=== PATIENT | female | born 1995 | race Caucasian/White ===

== ENCOUNTER 2017-06-02 13:50 | Emergency (ER) | payer OTHER ==
[2017-06-02 13:55] VITALS: BMI 22.8
[2017-06-02 13:56] VITALS: BP 112/69; PULSE 107; RESP 18; TEMP 98; O2SAT 100
--- NOTE | 2017-06-02 14:47 | RAD ---
PROCEDURE: Radiographs of the Left Shoulder HISTORY: Left shoulder pain x 1 days. h/o dislocation. COMPARISON: No prior. FINDINGS: BONES: No acute fracture. JOINTS: Unremarkable. SOFT TISSUES: Normal. OTHER FINDINGS: None. IMPRESSION: Demonstrated fracture dislocation.
--- NOTE | 2017-06-02 15:21 | C.PDOC ---
History Of Present Illness Pt c/o left shoulder pain. Denies recent injury. Time Seen by Provider: 06/02/17 14:11 Chief Complaint (Nursing): Upper Extremity Problem/Injury History Per: Patient Onset/Duration Of Symptoms: Days (1) Current Symptoms Are (Timing): Still Present Quality: "Pain" Severity: Moderate Exacerbating Factor(s): Strenuous Use Of Affected Area Additional History Per: Prior Records Past Medical History Reviewed: Historical Data, Nursing Documentation, Vital Signs Vital Signs: Last Vital Signs Temp 98 F 06/02/17 13:55 Pulse 107 H 06/02/17 13:55 Resp 18 06/02/17 13:55 BP 112/69 06/02/17 13:55 Pulse Ox 100 06/02/17 13:55 - Medical History PMH: Asthma - [facility] Procedures CL REDUC DISLOC-SHOULDER (02/01/13) Family History: States: Unknown Family Hx - Social History Hx Tobacco Use: No Hx Alcohol Use: No Hx Substance Use: No - Immunization History Hx Tetanus Toxoid Vaccination: Yes Hx Influenza Vaccination: No Hx Pneumococcal Vaccination: No Review Of Systems Except As Marked, All Systems Reviewed And Found Negative. Constitutional: Negative for: Fever, Weakness Cardiovascular: Negative for: Chest Pain Respiratory: Negative for: Shortness of Breath Gastrointestinal: Negative for: Vomiting, Abdominal Pain Musculoskeletal: Positive for: Shoulder Pain (left). Negative for: Neck Pain Skin: Negative for: Rash Neurological: Negative for: Weakness, Numbness Physical Exam - Physical Exam Appears: Non-toxic, No Acute Distress Skin: Normal Color, Warm, Dry, No Rash Head: Atraumatic, Normacephalic Eye(s): bilateral: Normal Inspection, PERRL, EOMI Neck: Normal ROM, Supple Cardiovascular: Rhythm Regular Respiratory: Normal Breath Sounds, No Accessory Muscle Use Gastrointestinal/Abdominal: Soft, No Tenderness Extremity: Normal ROM (but painful in left shoulder), No Deformity, No Swelling Extremity: Bilateral: Normal Color And Temperature Pulses: Left Radial: Normal Neurological/Psych: Oriented x3, Normal Motor, Normal Sensation ED Course And Treatment O2 Sat by Pulse Oximetry: 100 Pulse Ox Interpretation: Normal - Other Rad Left shoulder x-rays X-Ray: Viewed By Me, Read By Radiologist Interpretation: No acute fx or dislocation. Progress Note: Pt was placed in left arm sling. Reassessment Condition: Improved Disposition Counseled Patient/Family Regarding: Studies Performed, Diagnosis, Need For Followup - Disposition Referrals: Ty Babcock III, MD [Staff Provider] - Disposition: HOME/ ROUTINE Disposition Time: 15:21 Condition: STABLE Additional Instructions: Follow up with an public health specialist for further evaluation and treatment. Return to the ER if you develop redness, swelling, worsening of symptoms or if you have any other concerns. Instructions: Shoulder Pain (DC) Forms: [facility] (Hungarian) - Clinical Impression Clinical Impression: Left shoulder pain
== END 2017-06-02 15:30 | disposition home or self-care (01) ==
LOC: C.ER 13:50
DX: M25.512 Pain in left shoulder (principal)

== ENCOUNTER 2018-01-24 11:45 | Emergency (ER) | payer OTHER ==
[2018-01-24 11:51] VITALS: BMI 21.2
[2018-01-24 12:00] VITALS: BP 104/69; PULSE 68; RESP 17; TEMP 97.8; O2SAT 100
--- NOTE | 2018-01-24 12:15 | RAD ---
Date of service: 01/24/2018 HISTORY: Cough COMPARISON: Not available TECHNIQUE: Chest PA and lateral FINDINGS: LUNGS: No active pulmonary disease. PLEURA: No significant pleural effusion identified. No pneumothorax apparent. CARDIOVASCULAR: No aortic atherosclerotic calcification present. Normal cardiac size. No pulmonary vascular congestion. OSSEOUS STRUCTURES: No significant abnormalities. VISUALIZED UPPER ABDOMEN: Normal. OTHER FINDINGS: None. IMPRESSION: No active disease.
--- NOTE | 2018-01-24 12:35 | C.PDOC ---
History Of Present Illness 22 y/o female with PMHx of asthma, comes in for evaluation of cold symptoms for the past 4 days. Associated with nasal congestion and a cough productive of clear sputum. Otherwise patient denies any fever, chills, headache, drooling, neck pain, SOB, wheezing, chest pain, abd. pain, V/D, UTi sx or any other active complaints. Ambulate to Ed for evaluation, not in any apparent distress. Time Seen by Provider: 01/24/18 11:56 Chief Complaint (Nursing): Cough, Cold, Congestion History Per: Patient History/Exam Limitations: no limitations Onset/Duration Of Symptoms: Days Current Symptoms Are (Timing): Still Present Associated Symptoms: Cough, Sputum, Nasal Congestion Past Medical History Reviewed: Historical Data, Nursing Documentation, Vital Signs Vital Signs: Last Vital Signs Temp 97.8 F 01/24/18 11:52 Pulse 68 01/24/18 11:52 Resp 17 01/24/18 11:52 BP 104/69 01/24/18 11:56 Pulse Ox 100 01/24/18 11:52 - Medical History PMH: Asthma - [facility] Procedures CL REDUC DISLOC-SHOULDER (02/01/13) Family History: States: Unknown Family Hx - Social History Hx Tobacco Use: No Hx Alcohol Use: No Hx Substance Use: No - Immunization History Hx Tetanus Toxoid Vaccination: Yes Hx Influenza Vaccination: No Hx Pneumococcal Vaccination: No Review Of Systems Except As Marked, All Systems Reviewed And Found Negative. Constitutional: Negative for: Fever, Chills ENT: Positive for: Nose Congestion Cardiovascular: Negative for: Chest Pain, Light Headedness Respiratory: Positive for: Cough, Sputum. Negative for: Shortness of Breath, Wheezing Gastrointestinal: Negative for: Vomiting, Abdominal Pain, Diarrhea Neurological: Negative for: Headache, Dizziness Physical Exam - Physical Exam Appears: Well, Non-toxic, No Acute Distress Skin: Normal Color, Warm, No Rash Head: Normacephalic Eye(s): bilateral: PERRL Ear(s): Bilateral: Normal Nose: Discharge (Nasal congestion, scant rhinorrhea) Oral Mucosa: Moist Throat: Erythema (Mild pharyngeal erythema bilaterally), No Exudate, No Drooling Neck: Trachea Midline, Supple Chest: Symmetrical, No Deformity, No Tenderness Cardiovascular: Rhythm Regular, No Murmur, No JVD Respiratory: No Accessory Muscle Use, No Rales, No Rhonchi, No Stridor, No Wheezing Gastrointestinal/Abdominal: Soft, No Tenderness, No Distention, No Guarding Back: No CVA Tenderness Extremity: Normal ROM, No Tenderness, No Swelling Neurological/Psych: Oriented x3, Normal Speech ED Course And Treatment O2 Sat by Pulse Oximetry: 100 (RA) Pulse Ox Interpretation: Normal - Radiology CXR: Interpreted by Me, Viewed By Me, Read By Radiologist CXR Interpretation: Yes: No Acute Disease Progress Note: Patient treated with Zithromax and Tessalon perles. On re-eval, pt is afebrile, hemodynamicaly stable, non-toxic. Tolerate PO well in ED. PulsEOx 100% RA. ENT: no acute findings. Neck: Supple, (-) meningeal sign. Lungs: CTA B/L, BS equal B/L. CVS: (+)S1S2, reg, (-) murmur. Abd: benign, (-) guarding, (-) rebound. Neurologically intact. CXR review and appears without acute abnormalities. Pt advised on course of ds. Ref. to f/u with PMD in 1-2 days for re-eval. Return to ED if any worsening or new changes. Disposition Counseled Patient/Family Regarding: Studies Performed, Diagnosis, Need For Followup, Rx Given - Disposition Referrals: [facility] at [facility] [Outside] Disposition: HOME/ ROUTINE Disposition Time: 12:33 Condition: STABLE Additional Instructions: Encourage fluids take medication as prescribed Follow up with PMD in 2-3 days for re-evaluation. return to Ed if any worsening or new changes. Prescriptions: Azithromycin [Zithromax] 250 mg PO DAILY #4 tab Benzonatate [Tessalon Perle] 100 mg PO TID #14 capsule Instructions: Acute Bronchitis Forms: [facility] (Croatian) - POA Present On Arrival: None - Clinical Impression Clinical Impression: Bronchitis - PA / AUTOMOBILE TESTER / Resident Statement MD/DO has reviewed & agrees with the documentation as recorded. - Scribe Statement The provider has reviewed the documentation as recorded by the Scribe (Madalyn otto) All medical record entries made by the Scribe were at my direction and personally dictated by me. I have reviewed the chart and agree that the record accurately reflects my personal performance of the history, physical exam, medical decision making, and the department course for this patient. I have also personally directed, reviewed, and agree with the discharge instructions and disposition.
== END 2018-01-24 12:45 | disposition home or self-care (01) ==
LOC: C.ER 11:45
DX: J40 Bronchitis, not specified as acute or chronic (principal)

== ENCOUNTER 2018-04-01 01:15 | Emergency (ER) | payer SELFPAY ==
[2018-04-01 01:16] VITALS: BMI 21.2
[2018-04-01 01:47] VITALS: RESP 18
--- NOTE | 2018-04-01 02:16 | C.PDOC ---
History Of Present Illness 23 y/o female with hx asthma, no intubations,. not steroid dependent,. comes to ed for chest tightness and wheezing. pt denies any external exacerbatngi factor, no exposure to smoke. pt used albuterol pump 2 times, with no improvement. pt was given a duo neb treatment by nurse on arrival to ed prior to my exam of patient. no recent uri, cough or cold symptoms. no recent travel. not on ocp. Time Seen by Provider: 04/01/18 01:40 Chief Complaint (Nursing): Shortness Of Breath History Per: Patient History/Exam Limitations: no limitations Onset/Duration Of Symptoms: Hrs (1) Current Symptoms Are (Timing): Better Initiating Event: denies: Upper Respiratory Illness, Out Of Medications, Exercising/Sports, Exposure To Smoke Quality: Tightness Current Respiratory Medications: Albuterol Associated Symptoms: denies: Fever, Chills Past Medical History Reviewed: Historical Data, Nursing Documentation, Vital Signs Vital Signs: Last Vital Signs Temp 98.6 F 04/01/18 01:28 Pulse 87 04/01/18 01:46 Resp 18 04/01/18 01:46 BP 119/85 04/01/18 01:46 Pulse Ox 98 04/01/18 01:46 - Medical History PMH: Asthma - [facility] Procedures CL REDUC DISLOC-SHOULDER (02/01/13) Family History: States: Unknown Family Hx - Social History Hx Tobacco Use: No Hx Alcohol Use: No Hx Substance Use: No - Immunization History Hx Tetanus Toxoid Vaccination: Yes Hx Influenza Vaccination: No Hx Pneumococcal Vaccination: No Review Of Systems Constitutional: Negative for: Fever, Chills ENT: Negative for: Ear Pain, Nose Congestion, Throat Pain Cardiovascular: Negative for: Chest Pain Respiratory: Positive for: Shortness of Breath. Negative for: Cough Gastrointestinal: Negative for: Nausea, Vomiting, Abdominal Pain Musculoskeletal: Negative for: Neck Pain Skin: Negative for: Rash Neurological: Negative for: Weakness, Numbness Physical Exam - Physical Exam Appears: Non-toxic, No Acute Distress Skin: Warm, Dry Head: Atraumatic, Normacephalic Eye(s): bilateral: Normal Inspection Ear(s): Right: Normal Nose: No Discharge Cardiovascular: Rhythm Regular, No Murmur Respiratory: No Decreased Breath Sounds, No Accessory Muscle Use, No Rales, No Rhonchi, No Wheezing Extremity: Normal ROM, No Pedal Edema, No Calf Tenderness Neurological/Psych: Oriented x3, Normal Speech, Normal Cognition ED Course And Treatment O2 Sat by Pulse Oximetry: 98 Medical Decision Making Medical Decision Making: pt with chest tightness and wheezing- no exacerbating or initiating factor. pt feeling completely well after one duo nebulizer treatment in ed. with no wheezing on exam. pt examined after treatment. will observe and re-eval on reevaluation, patient reports feeling better with no chest tightness or wheezing. Able to ambulate around ED with no shortness of breath. Patient reports improvement of symptoms. Patient feels comfortable going home and will be discharged. Patient given follow up instructions. Instructed to return to ER if symptoms worsen or new symptoms arise. Disposition Counseled Patient/Family Regarding: Diagnosis, Need For Followup - Disposition Referrals: [facility] at [facility] [Outside] Disposition: HOME/ ROUTINE Disposition Time: 03:04 Condition: IMPROVED Additional Instructions: Please use albuterol pump 2 puffs every 4-6 hours if needed. Follow up with your doctor or in iide. Return to ER for any worse symptoms. Prescriptions: Albuterol HFA [Ventolin HFA 90 mcg/actuation (8 g)] 2 puff IH Q6 #1 inhaler Instructions: Asthma, Adult (DC) Forms: [facility] (Belarusian), General Discharge Instructions - Clinical Impression Clinical Impression: Asthma exacerbation
[2018-04-01 03:19] VITALS: BP 102/69; PULSE 78; TEMP 98
[2018-04-01 06:36] VITALS: O2SAT 98
== END 2018-04-01 03:18 | disposition home or self-care (01) ==
LOC: C.ER 01:15
DX: J45.901 Unspecified asthma with (acute) exacerbation (principal)

== ENCOUNTER 2018-04-28 01:02 | Emergency (ER) | payer SELFPAY ==
[2018-04-28 01:02] VITALS: BMI 21.2
[2018-04-28 01:40] VITALS: BP 108/72; PULSE 76; RESP 20; TEMP 97.8; O2SAT 99
--- NOTE | 2018-04-28 02:10 | C.PDOC ---
History Of Present Illness 23 y/o female presents to the ED for evaluation of head injury. Patient states she slipped and fell on wet floor, hitting her head on the floor. No LOC. She denies any nausea, vomiting, visual changes, extremity weakness, numbness, or paresthesias. No other injury sustained. Patient noted to have hematoma to the left forehead. - HPI Time Seen by Provider: 04/28/18 02:01 Chief Complaint (Nursing): Trauma History Per: Patient History/Exam Limitations: no limitations Onset/Duration Of Symptoms: Mins Injury Occurred (Timing): Just Before Arrival Location Of Injury: Left: Head Past Medical History Reviewed: Historical Data, Nursing Documentation, Vital Signs Vital Signs: Last Vital Signs Temp 97.8 F 04/28/18 01:37 Pulse 76 04/28/18 01:37 Resp 20 04/28/18 01:37 BP 108/72 04/28/18 01:37 Pulse Ox 99 04/28/18 01:37 - Medical History PMH: Asthma Surgical History: No Surg Hx - [facility] Procedures CL REDUC DISLOC-SHOULDER (02/01/13) Family History: States: Unknown Family Hx - Social History Hx Tobacco Use: No Hx Alcohol Use: No Hx Substance Use: No - Immunization History Hx Tetanus Toxoid Vaccination: Yes Hx Influenza Vaccination: No Hx Pneumococcal Vaccination: No Review Of Systems Constitutional: Negative for: Fever Eyes: Negative for: Vision Change Cardiovascular: Negative for: Chest Pain Respiratory: Negative for: Shortness of Breath Gastrointestinal: Negative for: Nausea, Vomiting Musculoskeletal: Negative for: Neck Pain, Back Pain Skin: Positive for: Other (swelling to left forehead). Negative for: Rash Neurological: Positive for: Other (+ head trauma, no LOC). Negative for: Weakness, Numbness, Change in Speech, Confusion, Dizziness Physical Exam - Physical Exam Appears: Non-toxic, No Acute Distress Skin: Warm, Dry Head: Normacephalic, Swelling (Hematoma to the left forehead), No Laceration Eye(s): bilateral: Normal Inspection (no nystagmus), PERRL, EOMI Nose: Normal Oral Mucosa: Moist Teeth: Normal Dentition, No Loose Neck: Normal ROM, No Midline Cervical Tenderness, Supple Chest: Symmetrical Cardiovascular: Rhythm Regular, No Murmur Respiratory: Normal Breath Sounds, No Accessory Muscle Use, No Rhonchi, No Wheezing Extremity: Bilateral: Atraumatic, Normal Color And Temperature, Normal ROM Neurological/Psych: Oriented x3, Normal Speech, Normal Cranial Nerves, Other (No focal deficits) Gait: Steady ED Course And Treatment O2 Sat by Pulse Oximetry: 99 (RA) Pulse Ox Interpretation: Normal Progress Note: Patient with minor head injury based on mechanism of fall and clinical presentation. sitting up on edge of stretcher in no distress. appears well. No Head CT indicated. Discussed risks vs benefits with patient who is agreeable with plan for observation over CT. Discussed return precautions in detail, patient expresses understanding. Disposition Counseled Patient/Family Regarding: Diagnosis, Need For Followup - Disposition Referrals: [facility] at [facility] [Outside] Disposition: HOME/ ROUTINE Disposition Time: 02:07 Condition: STABLE Additional Instructions: Please apply ICE to area for swelling Take tylenol for pain Follow up with your doctor Please be aware of head injury precautions as explained Return to ER if vomiting, lethargy , severe headache or worse Instructions: Minor Head Injury (DC) Forms: [facility] (Botswanan) Print Language: ESTONIAN - Clinical Impression Clinical Impression: Head injury, Traumatic hematoma of forehead - PA / DIRECTOR HEDIS / Resident Statement MD/DO has reviewed & agrees with the documentation as recorded. - Scribe Statement The provider has reviewed the documentation as recorded by the Scribkofi Campos All medical record entries made by the Scribe were at my direction and p ersonally dictated by me. I have reviewed the chart and agree that the record accurately reflects my personal performance of the history, physical exam, medical decision making, and the department course for this patient. I have also personally directed, reviewed, and agree with the discharge instructions and disposition.
== END 2018-04-28 02:48 | disposition home or self-care (01) ==
LOC: C.ER 01:02
DX: S00.83XA Contusion of other part of head, initial encounter (principal); W01.0XXA Fall on same level from slipping, tripping and stumbling without subsequent striking against object, initial encounter

== ENCOUNTER 2018-08-15 19:56 | Emergency (ER) | payer MEDICAID, OTHER ==
[2018-08-15 19:56] VITALS: BMI 21.2
[2018-08-15 20:20] VITALS: BP 103/65; PULSE 74; TEMP 98.5; O2SAT 100
[2018-08-15] MEDS ORDERED: Apap-Butalbital-Caffeine 325-50-40mg Tab PO STA (20:36)
--- NOTE | 2018-08-15 20:41 | C.PDOC ---
History Of Present Illness 23 y/o female presents to ED complaining of headache and slight dizziness x 2 days ago. She rates the headache 7/10, nonradiating, limited to the left side. Not improved with Aleve. Denies dizziness currently. Denies visual disturbances, photophobia, nausea, vomiting, urinary symptoms, or other complaints. Chief Complaint (Nursing): Headache History Per: Patient History/Exam Limitations: no limitations Onset/Duration Of Symptoms: Days Current Symptoms Are (Timing): Still Present Past Medical History Reviewed: Historical Data, Nursing Documentation, Vital Signs Vital Signs: Last Vital Signs Temp 98.5 F 08/15/18 20:17 Pulse 74 08/15/18 20:17 Resp 16 08/15/18 20:17 BP 103/65 08/15/18 20:17 Pulse Ox 100 08/15/18 20:17 Primary Care Provider: FAMILY PROVIDER,NO - Medical History PMH: Asthma - [facility] Procedures CL REDUC DISLOC-SHOULDER (02/01/13) Family History: States: No Known Family Hx - Social History Hx Tobacco Use: No Hx Alcohol Use: No Hx Substance Use: No - Immunization History Hx Tetanus Toxoid Vaccination: Yes Hx Influenza Vaccination: No Hx Pneumococcal Vaccination: No Review Of Systems Constitutional: Negative for: Fever, Chills Eyes: Negative for: Vision Change Cardiovascular: Negative for: Chest Pain Respiratory: Negative for: Shortness of Breath Gastrointestinal: Negative for: Nausea, Vomiting Genitourinary: Negative for: Dysuria, Hematuria Musculoskeletal: Negative for: Neck Pain Skin: Negative for: Rash, Bruising Neurological: Positive for: Headache, Dizziness. Negative for: Weakness, Numbness Physical Exam - Physical Exam Appears: Non-toxic, No Acute Distress Skin: Warm, Dry Head: Atraumatic, Normacephalic Eye(s): bilateral: Normal Inspection, PERRL, EOMI Ear(s): Bilateral: Normal Nose: No Discharge Oral Mucosa: Moist Tongue: Normal Appearing Lips: Normal Appearing Throat: Normal, No Erythema, No Exudate Neck: Normal ROM Chest: Symmetrical Cardiovascular: Rhythm Regular, No Murmur Respiratory: Normal Breath Sounds, No Rales, No Rhonchi, No Wheezing Extremity: Bilateral: Atraumatic Neurological/Psych: Oriented x3, Normal Speech, Normal Motor, Normal Sensation Gait: Steady ED Course And Treatment O2 Sat by Pulse Oximetry: 100 (RA) Pulse Ox Interpretation: Normal Medical Decision Making Medical Decision Making: Plan: --Fioricet PO Reassessment: patient notices significant improvement will continue meds as outpatient and will follow up with PMD patient verbalizes understanding and is in agreement with plan Disposition Counseled Patient/Family Regarding: Diagnosis, Need For Followup, Rx Given - Disposition Referrals: [facility] at [facility] [Outside] Disposition: HOME/ ROUTINE Disposition Time: 21:07 Condition: IMPROVED Additional Instructions: Continue meds as prscribed Follow up with PMD in 1-2 days for further evaluation Return to ED if symptoms worsen Prescriptions: Acetaminophen/Butalbital/Caf [Fioricet] 1 tab PO Q4 PRN #30 tab PRN Reason: Headache Instructions: Headache, Adult (DC) Forms: [facility] [employer] (Japanese) - Clinical Impression Clinical Impression: Headache - PA / MINE SAFETY DIRECTOR / Resident Statement MD/DO has reviewed & agrees with the documentation as recorded. - Scribe Statement The provider has reviewed the documentation as recorded by the Scribe Lori Humphrey All medical record entries made by the Lindenibkofi were at my direction and personally dictated by me. I have reviewed the chart and agree that the record accurately reflects my personal performance of the history, physical exam, medical decision making, and the department course for this patient. I have also personally directed, reviewed, and agree with the discharge instructions and disposition.
[2018-08-15] MEDS ORDERED: Apap-Butalbital-Caffeine 325-50-40mg Tab ONE (20:45)
[2018-08-15 21:24] VITALS: RESP 20
== END 2018-08-15 21:24 | disposition home or self-care (01) ==
LOC: C.ER 19:56
DX: R51 Headache (principal)